=== PATIENT | male | born 1935 | race Caucasian/White ===

== ENCOUNTER 2021-01-28 19:15 | Emergency (ER) | payer MEDICARE ==
[~2021-01-28] VITALS: Ht 172.7 cm; Wt 72.9 kg
--- NOTE | 2021-01-28 19:27 | PHYS DOC ---
General Adult EDM: Chief Complaint: CHEST PAIN-NON CARDIAC NATURE HPI: HPI: Patient is an 85-year-old male being seen in the emergency department for left- sided chest wall pain that radiates into his upper abdomen following an injury. Patient reports that the pain started 2 days ago. He states that he was outside when the storm door blew into his left side of his chest. He rates his pain 10 out of 10. It is worse with inspiration and movement. Patient reports that the pain keeps him from taking a deep breath. He has COPD and wears 5 L of oxygen at all times. He is mildly tachycardic but his oxygen is 98% on his 5 L. Patient denies any palpitations, dizziness, nausea, vomiting, fever. He states he has a chronic cough. (RIYA PETIT APRN) Review of Systems: Review of Systems: Constitutional: See HPI Respiratory: See HPI Cardiovascular: See HPI GI: See HPI Musculoskeletal: See HPI (RIYA PETIT APRN) Physical Exam: PE: Constitutional: Well developed, well nourished, no acute distress, non-toxic appearance. [] HENT: Normocephalic, atraumatic, DIOMEDE, bilateral external ears normal, oropharynx moist, no oral exudates, nose normal. [] Eyes: PERRL, EOMI, conjunctiva normal, no discharge. [] Neck: Normal range of motion, no stridor Cardiovascular:Heart rate tachycardia rhythm, no murmur [] Lungs & Thorax: Bilateral breath sounds clear to auscultation left-sided a nterior rib pain with palpation, ecchymosis noted to left sided anterior lower ribs, no flail chest, no crepitus palpated [] Abdomen: Bowel sounds normal, firm, tenderness with palpation to bilateral upper abdomen, no ecchymosis noted, no masses, no pulsatile masses. [] Skin: Warm, dry, no erythema, no rash. [] Back: Normal range of motion Extremities: No tenderness, no cyanosis, no clubbing, ROM intact, no edema. [] Neurologic: Alert and oriented X 3, normal motor function, normal sensory function, no focal deficits noted. [] Psychologic: Affect normal, judgement normal, mood normal. [] (RIYA PETIT APRN) Current Patient Data: Labs: Laboratory Tests Test 01/28/21 19:43 01/28/21 20:20 White Blood Count 6.6 x10^3/uL Red Blood Count 4.78 x10^6/uL Hemoglobin 12.4 g/dL Hematocrit 38.2 % Mean Corpuscular Volume 80 fL Mean Corpuscular Hemoglobin 26 pg Mean Corpuscular Hemoglobin Concent 32 g/dL Red Cell Distribution Width 14.9 % Platelet Count 232 x10^3/uL Neutrophils (%) (Auto) 65 % Lymphocytes (%) (Auto) 25 % Monocytes (%) (Auto) 8 % Eosinophils (%) (Auto) 1 % Basophils (%) (Auto) 1 % Neutrophils # (Auto) 4.3 x10^3uL Lymphocytes # (Auto) 1.6 x10^3/uL Monocytes # (Auto) 0.5 x10^3/uL Eosinophils # (Auto) 0.1 x10^3/uL Basophils # (Auto) 0.0 x10^3/uL Sodium Level 138 mmol/L Potassium Level 4.8 mmol/L Chloride Level 100 mmol/L Carbon Dioxide Level 31 mmol/L Anion Gap 7 Blood Urea Nitrogen 12 mg/dL Creatinine 1.0 mg/dL Estimated GFR (Cockcroft-Gault) 70.8 BUN/Creatinine Ratio 12 Glucose Level 109 mg/dL Calcium Level 10.1 mg/dL Total Bilirubin 0.3 mg/dL Aspartate Amino Transf (AST/SGOT) 13 U/L Alanine Aminotransferase (ALT/SGPT) 17 U/L Alkaline Phosphatase 94 U/L Troponin I Quantitative < 0.017 ng/mL Total Protein 7.8 g/dL Albumin 3.6 g/dL Albumin/Globulin Ratio 0.9 Current Medications Medications (Trade) Dose Ordered Sig/Maribel Route PRN Reason Start Time Stop Time Status Last Admin Dose Admin Fentanyl Citrate (Fentanyl 2ml Vial) 50 mcg 1X ONCE IVP 01/28/21 19:30 01/28/21 19:55 DC 01/28/21 19:46 Iohexol (Omnipaque 300 Mg/ml) 75 ml 1X ONCE IV 01/28/21 19:30 01/28/21 19:55 DC 01/28/21 21:13 Info (Do NOT chart on this entry -- for MONITORING) 1 each PRN DAILY PRN MC SEE COMMENTS 01/28/21 20:00 10/19/21 19:59 Fentanyl Citrate (Fentanyl 2ml Vial) 50 mcg 1X ONCE IVP 01/28/21 21:15 01/28/21 21:18 DC Morphine Sulfate (Morphine 4mg Syringe) 4 mg 1X ONCE IV 01/28/21 21:30 01/28/21 21:31 DC 01/28/21 21:30 Morphine Sulfate (Morphine 4mg Syringe) 4 mg STK-MED ONCE .ROUTE 01/28/21 21:22 01/28/21 21:23 DC (RIYA PETIT APRN) EKG: EKG: EKG performed by ER staff at 1929 shows sinus rhythm with a rate of 88, QTc 429, no STEMI read by Dr. Rivera at 1934 (RIYA PETIT APRN) Radiology/Procedures: Radiology/Procedures: [] (RIYA PETIT APRN) Impressions: EXAMINATION: CT CHEST+ABD+PELVIS W (CT CHEST WITH IV CONTRAST and CT ABDOMEN AND PELVIS WITH IV CONTRAST) CLINICAL HISTORY: Chest injury c/o chest and abdominal pain TECHNIQUE: CT of the chest performed with IV contrast, scanning from the thoracic inlet to the upper abdomen. CT of the abdomen and pelvis performed with IV contrast, scanning from just above the dome of the diaphragm to the symphysis pubis. CT Dose Reduction Employed: One or more of the following individualized dose reduction techniques were utilized for this examination: 1. Automated exposure control 2. Adjustment of the mA and/or kV according to patient size 3. Use of iterative reconstruction technique. COMPARISON: CT abdomen/pelvis 12/30/2015 FINDINGS: CHEST: Mild patchy opacities in the lingula, possibly subsegmental atelectasis. Bib asilar subsegmental atelectasis and/or scarring. Diffuse emphysematous changes. Old calcified granulomas. No pleural effusion. Central airways are patent. Visualized thyroid gland within normal limits. No mediastinal, hilar, or axillary lymphadenopathy. Main pulmonary artery normal in caliber. Aortic atherosclerotic plaque without aneurysm. Coronary atherosclerotic calcification and stents. Mild cardiomegaly. Mild degenerative changes in the thoracic spine. ABDOMEN/PELVIS: 1.3 cm cyst in the left hepatic lobe. A few other subcentimeter hypoenhancing lesions in the liver, too small adequately characterize but may represent rajan tional cysts. Gallbladder, pancreas, spleen, adrenal glands, and kidneys unremarkable. Minimally filled urinary bladder, suboptimally evaluated. Moderate to markedly enlarged prostate, similar to prior study. No bowel dilation or definite wall thickening. Sigmoid diverticulosis without evidence of acute diverticulitis. Appendix not definitively visualized. Extensive arterial atherosclerotic calcification without aneurysm. Moderate left inguinal hernia containing mesenteric fat and a loop of nonobstructed small bowel. Multilevel degenerative changes in the lumbar spine. Degenerative changes bilateral hips and left SI joint. IMPRESSION: No evidence of acute cardiopulmonary or abdominopelvic abnormality. Moderate left inguinal hernia containing a loop of nonobstructed small bowel. Multiple nonacute findings in the chest and abdomen/pelvis as described. Electronically signed by: Jose Richards DO (01/28/2021 11:16 PM) [facility] DICTATED AND SIGNED BY: JOSE RICHARDS DO DATE: 01/28/212299 CC: YOUNG RIVERA DO; Peter GAGE MD; RIYA PETIT APRN ~MTH0 0 (YOUNG RIVERA DO) Heart Score: C/O Chest Pain: Yes HEART Score for Chest Pain: HEART Score for Chest Pain Response (Comments) Value History Slighlty/Non-Suspicious (chest wall pain post injury) 0 ECG Nonspecific Repolarizatio 1 Age > 65 2 Risk Factors 1 or 2 Risk Factors 1 Troponin < Normal Limit 0 Total 4 Risk Factors: Risk Factors: DM, Current or recent (<one month) smoker, HTN, HLP, family history of CAD, obesity. Risk Scores: Score 0 - 3: 2.5% MACE over next 6 weeks - Discharge Home Score 4 - 6: 20.3% MACE over next 6 weeks - Admit for Clinical Observation Score 7 - 10: 72.7% MACE over next 6 weeks - Early Invasive Strategies (RIYA PETIT APRN) Course & Med Decision Making: Course & Med Decision Making Pertinent Labs and Imaging studies reviewed. (See chart for details) [] Patient presents to the emergency department for left-sided chest wall pain with shortness of breath. Work-up in the ER consisted of blood work, EKG, imaging of the chest and abdomen. Patient treated with pain medication in the ER. CBC, CMP unremarkable, negative troponin. EKG shows sinus rhythm. While in the CT scanner, patient states that he cannot lay flat. He states that the pain is too severe. Patient was given pain medication. He states that following the pain medication he could still not lay flat as he becomes too short of breath when he lays at flat and cannot lay flat at home while he sleeps. He states if he can go back to his room and take his inhalers then that will help him with his breathing and he can go back to the CT scanner. Patient was able to tolerate laying flat for CT scan. Awaiting results at this time. I discussed patients case with Dr. Rivera and he will assume patient care at this time. [id number]. (RIYA PETIT APRN) Course & Med Decision Making The patient CT of the chest abdomen and pelvis does not show any acute findings. There are multiple chronic findings. See official read for more details. The patient appears to just have a lower chest and upper abdomen contusion after getting hit with a door. I advised supportive care. He is stable for discharge at this time. (YOUNG RIVERA DO) Dragon Disclaimer: Dragon Disclaimer: This electronic medical record was generated, in whole or in part, using a voice recognition dictation system. (RIYA PETIT APRN) Departure Departure: Impression: Primary Impression: Contusion of ribs Disposition: HOME / SELF CARE / HOMELESS Condition: STABLE Referrals: Peter GAGE MD (PCP) Patient Instructions: Rib Contusion RIYA PETIT APRN Jan 28, 2021 19:27 YOUNG RIVERA DO Jan 28, 2021 23:29
[2021-01-28] MEDS ORDERED: IOHEXOL 300 MG/ML 75 ML VIAL. IV ONE (19:30)
[2021-01-28] MEDS ORDERED: CONTRAST GIVEN. MC PRN (20:00)
[2021-01-28 20:06] LABS: BASO % 1 % (0-3); EOS # 0.1 x10^3/uL (0.0-0.7); EOS % 1 % (0-3); HEMATOCRIT 38.2 % (39.0-53.0); HEMOGLOBIN 12.4 g/dL (13.0-17.5); LYMPH # 1.6 x10^3/uL (1.0-4.8); LYMPH % 25 % (24-48); MEAN CORPUSCULAR HEMOGLOBIN 26 pg (25-35); MEAN CORPUSCULAR HGB CONC 32 g/dL (31-37); MEAN CORPUSCULAR VOLUME 80 fL (79-100); MONO # 0.5 x10^3/uL (0.0-1.1); MONO % 8 % (0-9); NEUT # 4.3 x10^3uL (1.8-7.7); NEUT % 65 % (31-73); PLATELET COUNT 232 x10^3/uL (140-400); RED BLOOD COUNT 4.78 x10^6/uL (4.30-5.70); RED CELL DISTRIBUTION WIDTH 14.9 % (11.5-14.5); WHITE BLOOD COUNT 6.6 x10^3/uL (4.0-11.0)
--- NOTE | 2021-01-28 20:35 | EKG ---
[address] [address] Test Date: 2021-01-28 Test Time: 19:29:20 Pat Name: [facility] Department: Room: Gender: M [employer] Lead: LILLIAM : 1935 Requested By: RIYA PETIT Order Number: [id number] Reading MD: Terrence Romero MD Measurements Intervals [place] Rate: 88 P: 128 IN: 174 QRS: 47 QRSD: 106 T: 20 QT: 352 QTc: 429 Interpretive Statements SINUS RHYTHM Electronically Signed On 01-29-2021 10:20:04 CDT by Terrence Romero MD
[2021-01-28 20:50] LABS: CALCIUM 10.1 mg/dL (8.5-10.1); GFR 70.8; POTASSIUM 4.8 mmol/L (3.5-5.1)
[2021-01-28 20:56] LABS: ALBUMIN 3.6 g/dL (3.4-5.0); ALBUMIN/GLOBULIN RATIO 0.9 (1.0-1.7); TOTAL BILIRUBIN 0.3 mg/dL (0.2-1.0); TOTAL PROTEIN 7.8 g/dL (6.4-8.2)
[2021-01-28] MEDS ORDERED: MORPHINE SULFATE 4 MG/ML DISP.SYRIN. ONE (21:22)
[2021-01-28] MEDS ORDERED: MORPHINE SULFATE 4 MG/ML DISP.SYRIN. IV ONE (21:30)
--- NOTE | 2021-01-28 23:18 | RAD ---
EXAMINATION: CT CHEST+ABD+PELVIS W (CT CHEST WITH IV CONTRAST and CT ABDOMEN AND PELVIS WITH IV CONTR AST) CLINICAL HISTORY: Chest injury c/o chest and abdominal pain TECHNIQUE: CT of the chest performed with IV contrast, scanning from the thoracic inlet to the upper abdomen. CT of the abdomen and pelvis performed with IV contrast, scanning from just above the dome o f the diaphragm to the symphysis pubis. CT Dose Reduction Employed: One or more of the following individualized dose reduction techniques wer e utilized for this examination: 1. Automated exposure control 2. Adjustment of the mA and/or kV ac cording to patient size 3. Use of iterative reconstruction technique. COMPARISON: CT abdomen/pelvis 12/30/2015 FINDINGS: CHEST: Mild patchy opacities in the lingula, possibly subsegmental atelectasis. Bibasilar subsegmental atele ctasis and/or scarring. Diffuse emphysematous changes. Old calcified granulomas. No pleural effusion. Central airways are patent. Visualized thyroid gland within normal limits. No mediastinal, hilar, or axillary lymphadenopathy. Ma in pulmonary artery normal in caliber. Aortic atherosclerotic plaque without aneurysm. Coronary ather osclerotic calcification and stents. Mild cardiomegaly. Mild degenerative changes in the thoracic spine. ABDOMEN/PELVIS: 1.3 cm cyst in the left hepatic lobe. A few other subcentimeter hypoenhancing lesions in the liver, t oo small adequately characterize but may represent additional cysts. Gallbladder, pancreas, spleen, a drenal glands, and kidneys unremarkable. Minimally filled urinary bladder, suboptimally evaluated. Moderate to markedly enlarged prostate, sim ilar to prior study. No bowel dilation or definite wall thickening. Sigmoid diverticulosis without evidence of acute diver ticulitis. Appendix not definitively visualized. Extensive arterial atherosclerotic calcification without aneurysm. Moderate left inguinal hernia containing mesenteric fat and a loop of nonobstructed small bowel. Mult ilevel degenerative changes in the lumbar spine. Degenerative changes bilateral hips and left SI join t. IMPRESSION: No evidence of acute cardiopulmonary or abdominopelvic abnormality. Moderate left inguinal hernia containing a loop of nonobstructed small bowel. Multiple nonacute findings in the chest and abdomen/pelvis as described. Electronically signed by: Jose Wu DO (01/28/2021 11:16 PM) [facility]
[2021-01-28 23:20] VITALS: BP 150/86
[2021-01-28] MEDS ORDERED: HYDR-2759 PO (23:35)
[2021-01-28] MEDS ORDERED: HYDROcodone/APAP 5/325MG 1 TAB TABLET ONE (23:38)
== END 2021-01-28 23:46 | disposition home or self-care (01) ==
LOC: ER 19:15
DX: S20.212A Contusion of left front wall of thorax, initial encounter (principal); W22.8XXA Striking against or struck by other objects, initial encounter; Y93.89 Activity, other specified; Y92.89 Other specified places as the place of occurrence of the external cause; Y99.8 Other external cause status
CPT/HCPCS: 36415; 71260; 74177; 80053; 84484; 85025; 93005; 96374; 96375; 99285; J2270; J3010; Q9967